=== PATIENT | female | born 1955 | race Caucasian/White ===

== ENCOUNTER → 2020-12-20 | Day surgery (SDC) | payer BC ==
[~2020-12-20] MED LIST: CLARITIN10 M2 PO; DOCUSATE SODIU250 MG PO; ESTRADIOL42.5 GM VG; FLONASE 0.05% N16 GM; HAIR, SKIN &66.7 MCG PO; HYDROCODONE-AC1 EACH PO; IBUPROFEN600 MG PO; LAMOTRIGINE25 MG PO; VITAMIN B COMP1 EAC1 PO
[2020-12-20 09:28] LABS: HEMOGLOBIN 13.5 gm/dl (12.3-15.3); RED BLOOD COUNT 4.54 M/UL (4.00-5.10); WHITE BLOOD COUNT 7.5 K/UL (4.5-11.0)
== END | disposition home or self-care (01) ==
LOC: OR 08:43
PROVIDERS: Obstetrics & Gynecology
DX: N81.10 Cystocele, unspecified (principal); N81.6 Rectocele; N80.0 Endometriosis of uterus; G40.909 Epilepsy, unspecified, not intractable, without status epilepticus; K58.9 Irritable bowel syndrome, unspecified; E03.9 Hypothyroidism, unspecified; Z79.899 Other long term (current) drug therapy; Z20.822 Contact with and (suspected) exposure to COVID-19
CPT/HCPCS: 36415; 71045; 81001; 85025; 93005; C1769; J0690; J1100; J1170; J1885; J2001; J2250; J2370; J2405; J2704; J2710; J3010; J7050; J7120